=== PATIENT | female | born 1975 | race Caucasian/White ===

== ENCOUNTER 2016-12-21 08:58 | Emergency (ER) | payer OTHER ==
[~2016-12-21] VITALS: Ht 160 cm; Wt 59.0 kg
[~2016-12-21 08:58] MED LIST: FLNCV PO
[2016-12-21] MEDS ORDERED: CETI10TA84 PO (08:59)
[2016-12-21 09:02] VITALS: TEMP 36.8; Ht 160 cm; Wt 59.0 kg
[2016-12-21] MEDS ORDERED: FLUT0.15 NAE (09:20)
[2016-12-21] MEDS ORDERED: MONT1TAB3 PO (09:20)
--- NOTE | 2016-12-21 09:39 | EMERGENCY ROOM VISIT NOTE ---
ED Visit Note First contact with patient: 09:23 CHIEF COMPLAINT: Foot pain HISTORY OF PRESENT ILLNESS: This 41-year-old female patient presents to the emergency department complaining of swelling and pain in the right fifth toe after she stubbed the toe on a toy box last night around 9 PM. The patient rates the pain as aching and 2/10. The patient has taken Tylenol for relief of the pain. The patient is able to walk. No numbness or weakness. No ankle pain. There are no lacerations of the foot. The patient is able to move all of their toes and their ankle without pain. No previous fracture to this foot. REVIEW OF SYSTEMS: GENERAL: A 6 system review of systems was completed with positives and pertinent negatives in the HPI. ALLERGIES: Reviewed in chart MEDICATIONS: Reviewed in chart PMH: Seasonal allergies SOCIAL HISTORY: Lives with children. Denies tobacco, alcohol, recreational drug use. PHYSICAL EXAM: Vital Signs: Reviewed Nurse's notes, vital signs stable. GENERAL : Pleasant and cooperative, in no acute distress, well-developed, well- nourished. MUSCULOSKELETAL: There is no visual deformity of the right foot. There is no erythema, but there is some ecchymosis of the right fifth toe. There is no warmth. There is tenderness and swelling over the base of the right fifth toe. There is no tenderness over the lateral or medial malleolus. No tenderness of the tib/fib. The range of motion of the foot is intact. There is no tenderness over the plantar fascia. The skin is intact and there are no lacerations or puncture wounds. Dorsalis pedis pulse 2+. Capillary refill less than 2 seconds. EMERGENCY DEPARTMENT COURSE: I examined the patient. An X-ray of the right fifth toe was reviewed by myself and radiology and reveals acute midshaft fracture of the right fifth proximal phalanx, mildly displaced. The patient was placed in ganesh tape, she declined postop shoe and crutches. She was instructed to follow up with orthopedics. The patient was discharged home in good condition and ambulatory. Current/Historical Medications Scheduled Cetirizine (Zyrtec), 10 MG PO DAILY Fluticasone Propionate (Nasal) (Flonase Allergy Relief), 2 SPRAYS EDIS DAILY Montelukast Sodium (Singulair), 10 MG PO DAILY Allergies Coded Allergies: Animal Dander (Unverified Allergy, Unknown, , 12/21/16) Nicotine (Verified Allergy, Unknown, UNKNOWN, 12/21/16) Vital Signs Date Time Temp Pulse Resp B/P (MAP) Pulse Ox O2 Delivery O2 Flow Rate FiO2 12/21/16 11:15 62 18 125/70 100 Room Air 12/21/16 09:02 36.8 61 18 117/67 100 Room Air Departure Information Impression Primary Impression: Fracture of fifth toe, right, closed Dispostion Home / Self-Care Condition GOOD Referrals Jules Moreno M.D. (PCP) Fish Orosco MD Patient Instructions ED Fx [place], [employer] Additional Instructions Ice and elevation for the next 24-48 hrs to help reduce swelling and pain. Ibuprofen 600mg every 6-8 hours and Tylenol 1000 mg every 8 hours as needed for the pain. Keep the toes taped together for comfort for the next 3-4 weeks as the toe heals. Follow up with the orthopedic surgeon in the next week. Call for an appointment. Problem Qualifiers Primary Impression: Fracture of fifth toe, right, closed Encounter type: initial encounter Qualified Codes: S92.501A - Displaced unspecified fracture of right lesser toe(s), initial encounter for closed fracture
--- NOTE | 2016-12-21 10:36 | DIAGNOSTIC IMAGING REPORT ---
RIGHT FIFTH TOE 3 VIEWS HISTORY: right 5th toe injury, eval fx, dislocation Right COMPARISON: None. FINDINGS: There is no oblique fracture within the mid shaft of the proximal phalanx of the right fifth toe. This demonstrate mild lateral angulation and up to 2 mm of lateral displacement. No dislocation. Soft tissue swelling within the fifth toe. No radiopaque foreign bodies. IMPRESSION: Mildly displaced fracture within the proximal phalanx of the right fifth toe. Electronically signed by: Jarred Lindsey M.D. 12/21/2016 10:34 AM Dictated Date/Time: 12/21/2016 10:34 AM
[2016-12-21 11:15] VITALS: BP 125/70; PULSE 62; O2SAT 100
== END 2016-12-21 11:52 | disposition home or self-care (01) ==
LOC: C.EDB 09:00
DX: S92.501A Displaced unspecified fracture of right lesser toe(s), initial encounter for closed fracture (principal); W22.03XA Walked into furniture, initial encounter; J30.2 Other seasonal allergic rhinitis

== ENCOUNTER → 2017-08-08 | Outpatient (CLI) | payer OTHER ==
[~2017-08-08] MED LIST changes: +CETI10TA84 PO; -FLNCV PO; +FLUT0.15 NAE; +MONT1TAB3 PO
== END | disposition home or self-care (01) ==
LOC: C.PAPS 14:09
PROVIDERS: ATTEND Physician Assistant
DX: Z12.4 Encounter for screening for malignant neoplasm of cervix (principal); R87.616 Satisfactory cervical smear but lacking transformation zone